=== PATIENT | female | born 1990 | race African-American/Black ===

== ENCOUNTER → 2017-11-24 | Outpatient (CLI) | payer OTHER | LOC: M RAD 10:08 | DX: Z34.82 Encounter for supervision of other normal pregnancy, second trimester (principal) | CPT/HCPCS: 76811 ==

== ENCOUNTER → 2017-12-16 | Outpatient (CLI) | payer OTHER | LOC: M RAD 16:21 | DX: O34.592 Maternal care for other abnormalities of gravid uterus, second trimester (principal); Z36.89 Encounter for other specified antenatal screening; Z3A.22 22 weeks gestation of pregnancy | CPT/HCPCS: 76816 ==

== ENCOUNTER → 2019-06-12 | Outpatient (REF) | payer OTHER ==
[2019-06-12 19:09] LABS: HEMATOCRIT 39.6 % (36.0-47.0); HEMOGLOBIN 13.4 g/dl (12.0-15.5); MEAN CORPUSCULAR HEMOGLOBIN 31.1 pg (27.0-33.0); MEAN CORPUSCULAR HGB CONC 33.8 g/dl (32.0-36.5); MEAN CORPUSCULAR VOLUME 91.9 fl (80.0-96.0); PLATELET COUNT, AUTOMATED 267 10^3/uL (150-450); RED BLOOD COUNT 4.31 10^6/uL (4.00-5.40); WHITE BLOOD COUNT 8.7 10^3/uL (4.0-10.0)
[2019-06-12 19:36] LABS: HCG, SERUM QUANTITATIVE 76083 MIU/ML
[2019-06-12 19:50] LABS: HIV 1&2 SCREEN CENTAUR NEGATIVE (NEGATIVE)
[2019-06-14 10:42] LABS: RUBELLA IgG QUALITATIVE IMMUNE (IMMUNE)
[2019-06-14 11:11] LABS: HEPATITIS C VIRUS ABY INDEX < 0.0 INDEX (<0.8)
== END ==
LOC: M LAB REF 16:46
PROVIDERS: ATTEND Obstetrics & Gynecology
DX: O36.80X0 Pregnancy with inconclusive fetal viability, not applicable or unspecified (principal)

== ENCOUNTER → 2019-10-13 | Outpatient (CLI) | payer OTHER, MEDICAID ==
[2019-10-13 12:54] LABS: HEMOGLOBIN 12.6 g/dl (12.0-15.5); MEAN CORPUSCULAR HEMOGLOBIN 31.4 pg (27.0-33.0); MEAN CORPUSCULAR HGB CONC 34.1 g/dl (32.0-36.5); MEAN CORPUSCULAR VOLUME 92.3 fl (80.0-96.0); PLATELET COUNT, AUTOMATED 176 10^3/uL (150-450); RED BLOOD COUNT 4.01 10^6/uL (4.00-5.40)
== END ==
LOC: M LAB 11:09
PROVIDERS: ATTEND Obstetrics & Gynecology
DX: Z34.82 Encounter for supervision of other normal pregnancy, second trimester (principal)

== ENCOUNTER → 2019-11-30 | Outpatient (REF) | payer MEDICAID, OTHER | LOC: M LAB REF 17:39 | PROVIDERS: ATTEND Advanced Practice Midwife | DX: Z34.83 Encounter for supervision of other normal pregnancy, third trimester (principal) ==

== ENCOUNTER → 2020-07-23 | Outpatient (REF) | payer OTHER ==
[2020-07-23 13:09] LABS: HEMATOCRIT 39.6 % (36.0-47.0); HEMOGLOBIN 13.6 g/dl (12.0-15.5); MEAN CORPUSCULAR HEMOGLOBIN 31.6 pg (27.0-33.0); MEAN CORPUSCULAR HGB CONC 34.3 g/dl (32.0-36.5); MEAN CORPUSCULAR VOLUME 91.9 fl (80.0-96.0); PLATELET COUNT, AUTOMATED 227 10^3/uL (150-450); RED BLOOD COUNT 4.31 10^6/uL (4.00-5.40); WHITE BLOOD COUNT 8.3 10^3/uL (4.0-10.0)
[2020-07-23 14:44] LABS: HCG, SERUM QUANTITATIVE 11916 MIU/ML; HEPATITIS C VIRUS ABY INDEX < 0.0 INDEX (<0.8); HIV 1&2 SCREEN CENTAUR NEGATIVE (NEGATIVE)
== END ==
LOC: M LAB REF 12:13
PROVIDERS: ATTEND Advanced Practice Midwife
DX: O36.80X0 Pregnancy with inconclusive fetal viability, not applicable or unspecified (principal)

== ENCOUNTER → 2020-08-05 | Outpatient (CLI) | payer OTHER ==
--- NOTE | 2020-08-05 17:02 | REP ---
INDICATION: DATING AND VIABILITY W/GROWTH IF GESTATION ALLOWS COMPARISON: None. TECHNIQUE: Transabdominal obstetrical ultrasound with color Doppler evaluation. FINDINGS: Examination demonstrates a single live intrauterine in variable presentation. motion is identified by technologist. Placenta is noted posterior, low lying and grade 1 approximately 1.8 cm from the closed cervical os. Amniotic fluid volume is normal. Cervix measures 3.5 cm in length and appears closed.. Gestational age by LMP 19 weeks 3 days with NICK 12/27/2020. Gestational age by current measurements 18 weeks 6 days with NICK 12/31/2020. FHR equals 163 beats per minute. Estimated weight 266 grams (22ndpercentile). Anatomical assessment demonstrates normal structures including cranium, cavum, cerebellum/posterior fossa, facial features, lungs, four-chamber heart/ventricular outflow tracts, diaphragm, stomach, cord insertion/three-vessel cord, kidneys/bladder, spine, and extremities. Small bilateral choroid plexus cysts noted. IMPRESSION: 1. Single live intrauterine in variable presentation. 2. Posterior grade 1 low lying placenta 1.8 cm from the closed internal os. 3. Small bilateral choroid plexus cysts noted. Remainder of the anatomical assessment is complete and normal. <Electronically signed by Tyree Yanez > 08/05/20 [id number]
== END ==
LOC: M WHC 15:06
PROVIDERS: ATTEND Advanced Practice Midwife
DX: O28.3 Abnormal ultrasonic finding on antenatal screening of mother (principal); Z3A.18 18 weeks gestation of pregnancy

== ENCOUNTER → 2020-09-12 | Outpatient (CLI) | payer OTHER ==
--- NOTE | 2020-09-12 16:39 | REP ---
INDICATION: F/U ANATOMY. NICK by prior sonography 12/27/2020. COMPARISON: Comparison study August 05, 2020. TECHNIQUE: Transabdominal obstetric sonography. FINDINGS: Scanning through the gravid uterus demonstrates a viable single intrauterine gestation in transverse lie. motion is observed and heart rate is recorded at 135 beats per minute. A posterior placenta is seen, grade there 1, without evidence of placenta previa. Closed cervical length is measured at 4.2 cm transabdominally. No extrauterine abnormality is observed. Amniotic fluid is subjectively normal. Previously noted choroid plexus cyst is no longer apparent. Four-chamber heart and left ventricular outflow tract views are less than optimally seen today but were previously identified. No abnormality.. Biometry chart: BPD 6.1 cm, 24 weeks 6 days Head circumference 22.1 cm, 24 weeks 1 day Abdominal circumference 20.5 cm, 25 weeks 1 day Femur length 4.4 cm, 24 weeks 3 days Humeral length 4.0 cm, 24 weeks 2 days HC AC ratio normal 1.08 Cephalic index normal 0.8 Estimated weight 732 g, 1 lb 9 oz, 34th percentile for 24 weeks 6 days. IMPRESSION: Viable single intrauterine gestation at 24 weeks 4 days by today's composite sonographic criteria. NICK by today's sonography December 29, 2020. No complication identified. Expected gestational age estimate based on prior sonography is 24 weeks 6 days, NICK by prior sonography December 27, 2020. Appropriate interval growth. In conjunction with prior sonography, anatomic survey is felt to be complete. <Electronically signed by Oscar Jefferson > 09/12/20 [id number]
== END ==
LOC: M WHC 10:04
PROVIDERS: ATTEND Advanced Practice Midwife
DX: Z36.89 Encounter for other specified antenatal screening (principal)

== ENCOUNTER → 2020-10-16 | Outpatient (CLI) | payer OTHER, MEDICAID ==
[2020-10-16 16:20] LABS: HEMATOCRIT 38.7 % (36.0-47.0); HEMOGLOBIN 12.6 g/dl (12.0-15.5); MEAN CORPUSCULAR HEMOGLOBIN 31.7 pg (27.0-33.0); MEAN CORPUSCULAR HGB CONC 32.6 g/dl (32.0-36.5); MEAN CORPUSCULAR VOLUME 97.2 fl (80.0-96.0); PLATELET COUNT, AUTOMATED 170 10^3/uL (150-450); RED BLOOD COUNT 3.98 10^6/uL (4.00-5.40)
== END ==
LOC: M WUC 09:59
PROVIDERS: ATTEND Advanced Practice Midwife
DX: Z36.89 Encounter for other specified antenatal screening (principal)

== ENCOUNTER → 2020-11-29 | Outpatient (REF) | payer OTHER, MEDICAID | LOC: M LAB REF 16:21 | PROVIDERS: ATTEND Advanced Practice Midwife | DX: Z34.83 Encounter for supervision of other normal pregnancy, third trimester (principal) ==